=== PATIENT | female | born 1960 | race Caucasian/White ===

== ENCOUNTER 2021-01-09 09:32 | Outpatient (CLI) | payer BC, SELFPAY ==
--- NOTE | ~2021-01-09 | MM_ITS ---
EXAMINATION: MM screening marly BI w karissa HISTORY: Screening mammogram TECHNIQUE: Craniocaudal and mediolateral oblique 3-D tomosynthesis images were obtained and synthetic 2-D images were generated. CAD analysis was submitted and interpreted. COMPARISON: 01/27/2018, 02/05/2015, 02/02/2014 bilateral digital screening mammogram examinations BREAST PARENCHYMAL COMPOSITION: The breasts are extremely dense, which lowers the sensitivity of mamm ography. FINDINGS: There is no evidence of suspicious mass, calcification, or architectural distortion to sugg est malignancy in either breast. There has been no suspicious interval change. IMPRESSION: 1. No mammographic evidence of malignancy. 2. Recommend routine screening mammography in one year. BI-RADS Category 1: Negative Reviewed, dictated and finalized at location A.
== END 2021-01-09 09:33 | disposition home or self-care (01) ==
LOC: ANHIMG 09:37
PROVIDERS: PCP Family Medicine; Visit Provider Family Medicine
DX: Z12.31 Encounter for screening mammogram for malignant neoplasm of breast (principal)
CPT/HCPCS: 77063; 77067

== ENCOUNTER 2021-05-27 16:12 | Emergency (ER) | payer BC, SELFPAY ==
--- NOTE | 2021-05-27 17:08 | PC.NURSE ---
Patient called in to triage and states I feel better the symptoms are gone and I do not wish to be seen. Patient educated on to return to ED if symptoms worsen or continue. IV discontinued.
== END 2021-05-28 04:12 | disposition left against medical advice (07) ==
LOC: ANHED 17:15
PROVIDERS: PCP Family Medicine
DX: Z53.21 Procedure and treatment not carried out due to patient leaving prior to being seen by health care provider (principal)
CPT/HCPCS: 99199

== ENCOUNTER → 2021-08-22 12:06 | Outpatient (CLI) | payer BC, SELFPAY ==
--- NOTE | ~2021-08-22 | DEXA_ITS ---
Bone Density Report Name: STEPHANIE AGARWAL Age: 61 Sex: Female Ethnicity: White Date of : 1960 Indication: postmenopausal; screening for osteoporosis; Referring Provider: Marlena, Betty Keith Study: Bone densitometry was performed. Exam Date: August 22, 2021 Accession number: [id number] Bone Density: Region BMD T-score Z-score Classification AP Spine (L1-L4) 1.011 -0.3 1.2 Normal Femoral Neck (Left) 0.840 -0.1 1.3 Normal Total Hip (Left) 0.862 -0.7 0.3 Normal Femoral Neck (Right) 0.994 1.3 2.6 Normal Total Hip (Right) 0.888 -0.4 0.6 Normal Total Hip Mean 0.875 -0.6 0.5 Normal World Health Organization criteria for BMD impression classify patients as: Normal (T-score at or above -1.0), Osteopenia (T-score between -1.0 and -2.5), or Osteoporosis (T-score at or below -2.5). 10-year Fracture Risk: FRAX not reported because: All T-scores for Spine Total, Hip Total, Femoral Neck at or above -1.0 Clinical Information Provided by Patient: Smokes Patient maximum height was 67.75 Menopause Age: 48 No regular weight bearing exercise Does not regularly consume dairy products Onset of menses at age 14 Number of children 2 Impression: The patient has normal bone mass. The patient has risk factors, including: smoking. Discussion: BONE DENSITY IS ABOVE THE MINIMUM DESIRABLE LEVEL AT ALL SKELETAL SITES TESTED. This patient?s bone mineral density is above the minimum desirable level (T-score -1.0 or better) at all sites measured. The patient should follow a healthful lifestyle (good nutrition with adequate calcium and vitamin D, and appropriate weight-bearing exercise). Follow-Up: Consider repeating this study in 5 years or sooner if there is some new clinical indication. Reported by: [facility] on 08/22/2021 12:24:00 PM. Reviewed, dictated and finalized at location APamela PURI
== END ==
PROVIDERS: PCP Family Medicine; Visit Provider Nurse Practitioner Obstetrics & Gynecology
DX: M85.80 Other specified disorders of bone density and structure, unspecified site (principal); Z78.0 Asymptomatic menopausal state
CPT/HCPCS: 77080

== ENCOUNTER 2022-07-30 08:42 | Outpatient (CLI) | payer BC, SELFPAY ==
--- NOTE | ~2022-07-30 | MM_ITS ---
EXAMINATION: MM screening marly BI w karissa HISTORY: Screening TECHNIQUE: Craniocaudal and mediolateral oblique 3-D tomosynthesis images were obtained and synthetic 2-D images were generated. CAD analysis was submitted and interpreted. COMPARISON: Comparison to multiple prior studies sequentially, with oldest reviewed study dated 01/26. BREAST PARENCHYMAL COMPOSITION: The breasts are extremely dense, which lowers the sensitivity of mamm ography. FINDINGS: There is no evidence of suspicious mass, calcification, or architectural distortion to sugg est malignancy in either breast. There has been no suspicious interval change. IMPRESSION: 1. No mammographic evidence of malignancy. 2. Recommend routine screening mammography in one year. BI-RADS Category 1: Negative Reviewed, dictated and finalized at location B. ANALYST
== END 2022-07-30 08:43 | disposition home or self-care (01) ==
LOC: ANHIMG 08:45
PROVIDERS: PCP Family Medicine; Visit Provider Family Medicine
DX: Z12.31 Encounter for screening mammogram for malignant neoplasm of breast (principal)
CPT/HCPCS: 77063; 77067

== ENCOUNTER 2022-10-09 01:01 | Day surgery (SDC) | payer BC, SELFPAY ==
[2022-09-25 14:00] VITALS: BMI 19.6
--- NOTE | 2022-10-09 07:52 | WPDANESEPPF ---
Anes - Initial Pre Proc Eval Procedure: Operation Date: 10/09/22 10:30 Proposed Procedures p Screening Colonoscopy - Frantz Mccracken MD Date/Time: 10/09/22 07:52 Surgeon: Frantz Mccracken MD Pre Op Diagnosis: hx of colon polyps Patient Data Age: 62 Gender: F Height: 1.7 m Weight: 57 kg Allergies Allergy/AdvReac Type Severity Reaction Status Date / Time No Known Allergies Allergy Unknown Verified 10/09/22 09:22 Home Medications Medication Instructions Recorded Confirmed Type aspirin 81 mg tablet,delayed 81 mg PO DAILY 12/17/20 10/09/22 History release (Adult Aspirin Regimen) cyclobenzaprine 10 mg tablet 10 mg PO TID PRN muscle spasm #20 12/17/20 10/09/22 Rx tabs hydrocodone 7.5 mg-acetaminophen 1 tablet PO Q8H PRN Pain 12/17/20 10/09/22 History 325 mg tablet multivit with 1 tablet PO DAILY 12/17/20 10/09/22 History bypdsdmw-imjb-FV-lutein 8 mg iron-400 mcg-300 mcg tablet (Centrum Silver Women) naproxen 500 mg tablet 500 mg PO BID PRN pain #60 tabs 12/17/20 10/09/22 Rx triamcinolone acetonide 0.1 % 1 applic topical BID PRN 12/17/20 10/09/22 Rx topical cream rash/itching #80 grams lisinopril 5 mg tablet 5 mg PO .HS #90 tabs 08/04/22 10/09/22 Rx Patient hx anesthesia problems: none Family hx anesthesia problems: none Results Review: All pre-operative results and documents have been reviewed as part of the pre-operative evaluation. [facility] Past Medical History Medical History (Updated 01/07/22 @ 13:59 by Ines Starks MD) Colon polyp Essential hypertension Tobacco abuse Family History Family History Father Acute myocardial infarction Mother Arterial hypotension Sibling Testicular cancer Bladder cancer Pancreatic cancer Social History Social History Smoking packs per day: 1 Smoking cigarettes per day: 20.0 Smoking status: Current every day smoker Tobacco type: cigarettes Alcohol intake: current Drinks per week: 6 Alcohol use details: beer-2/day Substance use: current Substance use type: marijuana Other substance usage details: Uses once weekly Last use: 09/24/22 Living arrangements: with family Spiritual care concerns: No Agree to blood products: Yes Anes - Eval Final PreProcedure Day of Procedure 10/09/22 07:52 Patient weight: normal Heart: regular rate and rhythm Lungs: clear to auscultation and normal air movement Airway: Mallampati scale class II Neurological: alert and oriented Last oral intake: >/= 8 hours ASA classification: III Emergent: no Anesthetic plan: proceed Anesthesia type and monitoring: general GIVS and standard monitoring Results Review: All pre-operative results and documents have been reviewed as part of the pre-operative evaluation. Informed Consent: The patient's anesthetic plan and its attendant risks and benefits were discussed with the patient/family/POA. Questions were solicited and answers provided to the satisfaction of the patient/family/POA.
[2022-10-09 09:24] VITALS: BP 148/86; PULSE 81; RESP 16; TEMP 37.8; O2SAT 99
--- NOTE | 2022-10-09 09:32 | PM.HPGS ---
History of Present Illness History of Present Illness Consent: Risks, benefits, and alternatives have been discussed and questions answered. Patient agrees to proceed with procedure. Chief complaint: hx of colon polyps Narrative: Radha Puri is a 62 year old female Presents for screening colonoscopy. Patient's current weight appetite and bowel movements are normal. Patient denies abdominal pain. She has had no bleeding. Family history noncontributory. Previous colonoscopy 2010 revealed a benign adenomatous colon polyp. Review of Systems Review of Systems: Review of systems noncontributory. [facility] Past Medical History Medical History (Updated 10/09/22 @ 09:34 by Frantz Mccracken MD) Colon polyp Essential hypertension Tobacco abuse Family History Family History Father Acute myocardial infarction Mother Arterial hypotension Sibling Testicular cancer Bladder cancer Pancreatic cancer Social History Social History Smoking packs per day: 1 Smoking cigarettes per day: 20.0 Smoking status: Current every day smoker Tobacco type: cigarettes Alcohol intake: current Drinks per week: 6 Alcohol use details: beer-2/day Substance use: current Substance use type: marijuana Other substance usage details: Uses once weekly Last use: 09/24/22 Living arrangements: with family Spiritual care concerns: No Agree to blood products: Yes Meds Home Medications and Allergies Home Medications Medication Instructions Recorded Confirmed Type aspirin 81 mg tablet,delayed 81 mg PO DAILY 12/17/20 10/09/22 History release (Adult Aspirin Regimen) cyclobenzaprine 10 mg tablet 10 mg PO TID PRN muscle spasm #20 12/17/20 10/09/22 Rx tabs hydrocodone 7.5 mg-acetaminophen 1 tablet PO Q8H PRN Pain 12/17/20 10/09/22 History 325 mg tablet multivit with 1 tablet PO DAILY 12/17/20 10/09/22 History lkesbeex-juee-YM-lutein 8 mg iron-400 mcg-300 mcg tablet (Centrum Silver Women) naproxen 500 mg tablet 500 mg PO BID PRN pain #60 tabs 12/17/20 10/09/22 Rx triamcinolone acetonide 0.1 % 1 applic topical BID PRN 12/17/20 10/09/22 Rx topical cream rash/itching #80 grams lisinopril 5 mg tablet 5 mg PO .HS #90 tabs 08/04/22 10/09/22 Rx Allergies Allergy/AdvReac Type Severity Reaction Status Date / Time No Known Allergies Allergy Unknown Verified 10/09/22 09:22 Vital Signs Vital Signs - 24 hr 10/09/22 09:24 Temperature 100.1 F H Pulse Rate 81 Respiratory Rate 16 Blood Pressure 148/86 H Pulse Oximetry 99 Oxygen Delivery Room Air Exam Narrative: Physical exam reveals patient to be alert. Vital signs stable. HEENT exam is unremarkable. Patient is anicteric. Lungs are clear to auscultation and percussion. Heart is without murmur or extra sounds. Abdomen bowel sounds are present soft nontender with no organomegaly. Digital external rectal exam is normal. Assessment and Plan Assessment and plan (1) History of colon polyps: Code(s): Z86.010 - Personal history of colonic polyps Status: Acute Assessment and Plan: Patient presents for screening colonoscopy. She does have a distant history of colon polyps. Further recommendations may be given after endoscopy.
[2022-10-09] MEDS: LACTATED RINGERS 1,000 ML 150 ML IV CONT (09:35)
[2022-10-09] MEDS: SIMETHICONE ORAL SUSPENSION 20 MG/0.3 ML 30 ML BOTTLE 0.6 ML IRRIGATION (10:01)
[2022-10-09 10:15] VITALS: BP 114/74; PULSE 81; RESP 23; TEMP 37.8; O2SAT 100
[2022-10-09 10:25] VITALS: BP 78/74; PULSE 78; RESP 26; TEMP 37.8; O2SAT 100
[2022-10-09 10:35] VITALS: BP 78/74; PULSE 69; RESP 26; TEMP 37.8; O2SAT 100
== END 2022-10-09 10:45 | disposition home or self-care (01) ==
PROVIDERS: PCP Family Medicine; Visit Provider Internal Medicine Gastroenterology
PROC: 0DJD8ZZ Inspection of Lower Intestinal Tract, Via Natural or Artificial Opening Endoscopic (ICD-10-PCS; CPT 45378; principal; 2022-10-09 10:30)
DX: Z12.11 Encounter for screening for malignant neoplasm of colon (principal); D12.5 Benign neoplasm of sigmoid colon; K64.8 Other hemorrhoids; I10 Essential (primary) hypertension; Z79.82 Long term (current) use of aspirin; F17.210 Nicotine dependence, cigarettes, uncomplicated; F12.90 Cannabis use, unspecified, uncomplicated
CPT/HCPCS: 45385; J2704; J7120

== ENCOUNTER 2023-12-09 08:38 | Outpatient (CLI) | payer BC, SELFPAY ==
--- NOTE | ~2023-12-09 | MM_ITS ---
EXAMINATION: MM screening marly BI w karissa HISTORY: Screening mammogram TECHNIQUE: Craniocaudal and mediolateral oblique 3-D tomosynthesis images were obtained and synthetic 2-D images were generated. CAD analysis was submitted and interpreted. COMPARISON: 07/30/2022, 01/09/2021 bilateral screening mammogram examinations BREAST PARENCHYMAL COMPOSITION: The breasts are extremely dense, which lowers the sensitivity of mamm ography. FINDINGS: There is no evidence of suspicious mass, calcification, or architectural distortion to sugg est malignancy in either breast. There has been no suspicious interval change. IMPRESSION: 1. No mammographic evidence of malignancy. 2. Recommend routine screening mammography in one year. BI-RADS Category 1: Negative Reviewed, dictated and finalized at location A.
== END 2023-12-09 08:39 | disposition home or self-care (01) ==
LOC: ANHIMG 08:42
PROVIDERS: PCP Family Medicine; Visit Provider Family Medicine
DX: Z12.31 Encounter for screening mammogram for malignant neoplasm of breast (principal)
CPT/HCPCS: 77063; 77067

== ENCOUNTER 2024-12-15 15:51 | Outpatient (CLI) | payer BC, SELFPAY ==
--- NOTE | ~2024-12-15 | MM_ITS ---
EXAMINATION: MM screening marly BI w karissa HISTORY: Screening TECHNIQUE: Craniocaudal and mediolateral oblique 3-D tomosynthesis images were obtained and synthetic 2-D images were generated. CAD analysis was submitted and interpreted. COMPARISON: Comparison to multiple prior studies sequentially, with oldest reviewed study dated 02/05. BREAST PARENCHYMAL COMPOSITION: Dense: The breasts are extremely dense, which lowers the sensitivity of mammography. FINDINGS: There is no evidence of suspicious mass, calcification, or architectural distortion to sugg est malignancy in either breast. There has been no suspicious interval change. IMPRESSION: 1. No mammographic evidence of malignancy. 2. Recommend routine screening mammography in one year. BI-RADS Category 1: Negative Reviewed, dictated and finalized at location A.
== END 2024-12-15 15:52 | disposition home or self-care (01) ==
PROVIDERS: PCP Family Medicine; Visit Provider Family Medicine
DX: Z12.31 Encounter for screening mammogram for malignant neoplasm of breast (principal)
CPT/HCPCS: 77063; 77067